=== PATIENT | female | born 1960 | race Caucasian/White ===

== ENCOUNTER 2021-04-29 09:35 | Outpatient (REF) | payer BC, SELFPAY ==
[2021-04-29 11:12] LABS: MANUAL DIFF FLAG NO
[2021-04-29 11:15] LABS: Basophils Absolute Auto 0.1 X10*3/uL (0.0-0.2); Basophils Percent Auto 0.9 % (0-2); Eosinophils Absolute Auto 0.2 X10*3/uL (0.0-0.4); Eosinophils Percent Auto 3.5 % (0-4); Hematocrit 40.4 % (37-47); Hemoglobin 13.4 g/dl (12.0-16.0); Imm Gran Abs Auto 0.01 X10*3/uL (0.00-0.03); Imm Gran Pct Auto 0.2 % (0.0-0.4); Lymphocytes Absolute Auto 1.5 X10*3/uL (1.2-4.9); Lymphocytes Percent Auto 27.8 % (20-40); Mean Corpuscular HGB Conc 33.2 g/dl (31.0-35.0); Mean Corpuscular Hemoglobin 28.7 pg (27.0-33.0); Mean Corpuscular Volume 86.5 fL (80-98); Mean Platelet Volume 10.4 fL (9.4-12.3); Monocytes Absolute Auto 0.7 X10*3/uL (0.1-1.2); Monocytes Percent Auto 12.1 % (2-11); Neutrophils Percent Auto 55.5 % (45-73); Platelet Count 222 X10*3/uL (160-400); Red Blood Count 4.67 X10*6/uL (4.20-5.50); Red Cell Distribution Width 12.5 % (11.0-16.0); White Blood Count 5.4 X10*3/uL (4.8-10.8)
[2021-04-29 11:35] LABS: Alanine Aminotransferase 17 U/L (0-31); Albumin Level 4.3 g/dL (3.5-5.0); Alkaline Phosphatase 54 U/L (39-117); Anion Gap 12 (12-20); Aspartate Amino Transferase 18 U/L (5-31); Bilirubin Total 0.4 mg/dL (0.0-1.0); Blood Urea Nitrogen 21 mg/dL (9-16); Calcium 9.5 mg/dL (8.4-10.2); Carbon Dioxide 28 mmol/L (22-29); Chloride 105 mmol/L (96-108); Cholesterol 229 mg/dL; Estimated Glomerular Filt Rate > 60; Glucose Fasting 100 mg/dL (60-99); HDL Cholesterol 65 mg/dL; LDL Cholesterol Calculated 143 mg/dl; Potassium 4.4 mmol/L (3.3-5.1); Sodium 141 mmol/L (135-145); Total Protein 7.5 g/dL (6.5-8.0); Triglycerides 107 mg/dL
== END 2021-04-29 09:36 | disposition home or self-care (01) ==
LOC: HO.MANLDS 09:35
PROVIDERS: PCP Internal Medicine; Visit Provider Physician Assistant
DX: Z00.00 Encounter for general adult medical examination without abnormal findings (principal); Z13.220 Encounter for screening for lipoid disorders
CPT/HCPCS: 36415; 80053; 80061; 85025

== ENCOUNTER 2023-04-02 17:05 | Outpatient (REF) | payer BC, SELFPAY ==
[2023-04-02 18:33] LABS: Magnesium 2.3 mg/dL (1.6-2.6)
[2023-04-02 18:52] LABS: Vitamin D 25-OH Total 58.5 ng/mL (>30)
[2023-04-05 11:48] LABS: Complement C3 130 mg/dL (83-193)
[2023-04-08 16:42] LABS: Vitamin D 25-OH, D2 <4 ng/mL; Vitamin D 25-OH, D3 48 ng/mL; Vitamin D 25-OH, Total 48 ng/mL (30-100)
[2023-04-08 20:05] LABS: VITAMIN D (1,25 OH) D3 40 pg/mL; Vit D (1,25-Dihydroxy) Total 40 pg/mL (18-72); Vitamin D (1,25 OH) D2 <8 pg/mL
[2023-04-09 06:09] LABS: Calcium (PTHI) 9.6 mg/dL (8.6-10.4); PTHI 37 pg/mL (16-77)
== END 2023-04-02 17:06 | disposition home or self-care (01) ==
LOC: HO.LAB 17:05
PROVIDERS: PCP Internal Medicine; Visit Provider Physician Assistant
DX: T14.8XXS Other injury of unspecified body region, sequela (principal); W57.XXXS Bitten or stung by nonvenomous insect and other nonvenomous arthropods, sequela; R76.8 Other specified abnormal immunological findings in serum; R20.9 Unspecified disturbances of skin sensation; E55.9 Vitamin D deficiency, unspecified
CPT/HCPCS: 82306; 82330; 82652; 83735; 83970; 86160; 86790

== ENCOUNTER 2025-01-16 12:17 | Outpatient (REF) | payer BC, SELFPAY ==
--- OUTSIDE RECORDS SUMMARY | 2025-01-16 12:55 | XMS_ITS | Encounter Summary ---
Author Organization [facility] Address [address] [place] [address] Care Team Providers Care [employer] Name Role Phone Tevin Munguia DO Primary Care Provider [phone] Michelle Talbot MD Unavailable Michelle Talbot MD Unavailable Encounter Details Date Type Department Care Team (Late st Contact Info) Description 07/23/2023 Scanned Document [facility] RHEUMATOLOGY SCAN Rheumatology, Scan Social History Tobacco Use Types Packs/Day Years Used Date Smoking Tobacco: Former Cigarettes Smokeless Tobacco: Never Alcohol Use Standard Drinks/Week Comments Yes 1 (1 standard drink = 0.6 oz pur e alcohol) Comments No Sex and Gender Information Value Date Recorded Sex Assigned at Female 04/27/2023 1:47 PM EDT Legal Sex Female 1:12 PM EDT Gender Identity Female 04/27/2023 1:47 PM EDT Sexual Orientation Heterosexual (straight) 04/27 1:47 PM EDT documented as of this encounter Plan of Treatment Not on file documented as of this encounter Visit Diagnoses Not on filedocumented in this encounter Care Teams [employer] Relationship Specialty Start Date End Date Tevin Munguia DO [address] [facility] [place] [address] [place] [address] PCP - General 06/21/23 Michelle Talbot MD [address] [id number] PCP - [employer] Attributed 08/17/23 12/16/23 Michelle Talbot MD [address] [place] [id number] PCP - [employer] Attributed 01/16/24 Brenda Javed [address] [place] [id number] Physician Inspector [employer] Internal Medicine 04/27/23 documented as of this encounter
--- OUTSIDE RECORDS SUMMARY | 2025-01-16 12:55 | XMS_ITS | Data Portability ---
Author Organization [facility] Address [address] [place] [address] Assessment Encounter Date Assessment Date Assessment LastModified by Organization Details LastModified Time 03/23/2023 03/23/2023 Patient agreed and verbally consents to this audio and video Telehealth appt via a secure platform [email or web address] Not available 03/23/2023 12:06:23 05/11/2023 05/11/2023 Patient agreed and verbally consents to this audio and video Telehealth appt via a secure platform [email or web address] Not available 05/11/2023 10:25:51 Plan of Treatment Reminders Order Date Submit Date Provider Last Modified By Organization Details Last Modified Time Details Appointments ANNUAL EXAM 2024 11:45A M GIRMA KENDALL Not available Not available Not available Lab CMP, serum or plasma 2024 025 [facility], [address] [place] [address], [id number], 01/16/2025 12:12:18 CBC w/ auto diff 2024 025 [facility], [address] [place] [address], [id number], 01/16/2025 12:12:18 lipid panel, blood 2024 025 [facility], [address] [place] [address], [id number], 01/16/2025 12:12:18 C-reactiv e protein, quantitat kary, serum or plasma 2024 025 [facility], [address] [place] [address], [id number], 01/16/2025 12:25:45 ESR (erythroc yte sedimenta tion rate), blood 2024 025 [facility], [address] [place] [address], [address], 01/16/2025 12:25:45 sjogren antibody panel (ssa, ssb, ro, la), serum 2024 025 [facility], [address] [place] [address], [id number], 01/16/2025 12:25:45 C3 + C4 (compleme nt), serum 2022 023 [facility], [address] [place] [address], [address], 04/06/2023 11:52:28 chikungun ya virus Ab IgM + IgG panel, serum 2022 023 [facility], [address] [place] [address], [id number], 04/12/2023 13:19:21 malaria, igg Ab, serum 2022 023 [facility], [address] [place] [address], [address], 04/10/2023 11:30:43 vitamin D, 25-hydrox y, total, serum 2022 023 [facility], [address] [place] [address], [address], 04/02/2023 16:05:27 PTH (parathyr oid hormone), intact, serum or plasma 2022 023 [facility], [address] [place] [address], [address], 04/02/2023 16:05:26 magnesium , serum or plasma 2022 023 [facility], [address] [place] [address], [address], 04/02/2023 16:05:26 calcium, ionized, blood 2022 023 [facility], [address] [place] [address], [address], 04/02/2023 16:05:26 vitamin D, 1,25-dihy droxy, serum 2022 023 [facility], [address] [place] [address], [address], 04/03/2023 11:56:43 vitamin D3, 25-hydrox y, serum 2022 023 [facility], [address] [place] [address], [address], 04/02/2023 16:05:27 Referral None recorded. Procedures None recorded. Surgeries None recorded. Imaging bone density 2022 023 [facility], [address], [place], [address], 04/16/2023 09:44:05 US, kidney - autoimmun e disorder; concern for effect on kidneys 2022 023 [facility], [address], [address], [place], [address], 04/13/2023 06:58:48 Medication Orders lisinopri l 10 mg tablet 2024 025 [facility], [facility], GIRMA Kerr, [address], 01/16/2025 12:11:25 fluconazo le 200 mg tablet 2024 025 [facility]135, [address], [place], [place], [id number], 01/16/2025 12:03:16 phentermi ne 15 mg capsule 2022 023 [facility]04918, [address], [place], [place], [id number], 01/16/2025 11:49:04 prednison e 10 mg tablet 2022 023 [facility]86674, [address], [place], [id number], 04/02/2023 15:30:49 EstroGel 1.25 gram/actu ation (0.06%) transderm al gel pump 2022 023 [facility], [address] [place] [address], [address], 01/16/2025 11:49:22 Contrave 8 mg-90 mg tablet,ex tended release 2022 023 [facility], [address] [place] [address], [address], 10/04/2022 10:20:45 Zithromax Z-Jaxon 250 mg tablet 2022 023 [facility] #61634, [address], [place], [place], [id number], 10/04/2022 10:19:02 Patient TargetsNo targets recorded. Patient InstructionsNo instructions recorded. Reason for Referral None Reported. Results Created Date Observation Date Name Description Value Unit Range Abnormal Flag Note LastModifiedBy Organization Detail LastModifiedTime 04/13/20 23 04/13/2023 XR, cervi cher spine , 2 or 3 view No observ ation record ed. [address], [place], [address], 04/16/2023 08:38:48 05/16/2005/14/2023 bone densi ty No observ ation record ed. [facility] [address] [place], [address], 01/16/2025 12:12:30 10/05/19 24 10/05/2023 MAMMO , scree leah, digit al, bilat eral No observ ation record ed. [facility] [address] [place], [address], 01/16/2025 12:12:30 10/09/19 25 10/09/2024 MAMMO , scree leah, digit al, bilat eral No observ ation record ed. [facility] [address] [facility] [address], [place], [address], 01/16/2025 12:12:30 Result Notes None recorded. 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 frequent uti, vaginal dryness December RIKKI Winters [address] [place], [address], [facility] 9 15:08:10 Overweig ht 082308244 Active 2022 GIRMA KENDALL [address] [place], [address], [facility] 3 15:57:39 Acute otitis media 5467609 Active 2022 GIRMA KENDALL [address] [place] [address], [address], [facility] 3 16:10:14 Reduced libido 5367497 Active 2022 GIRMA KENDALL [address] [place] [address], [address], [facility] 3 16:16:22 Atrophic vaginiti s 36353785 Active 2022 GIRMA KENDALL [address] [place] [address], [address], [facility] 3 16:17:06 Rheumato id arthriti s 39191109 Active 2022 GIRMA KENDALL [address] [place] [address], [address], [facility] 3 09:39:54 Pain of multiple joints 12384791 Active 2022 GIRMA KENDALL [address] [place] [address], [address], [facility] 3 10:51:25 Myalgia/ myositis - multiple 557431901 Active 2022 GIRMA KENDALL [address] [place] [address], [address], [facility] 3 11:57:12 Mosquito bite 409613029 Active 2022 GIRMA KENDALL [address] [place] [address], [address], [facility] 3 15:52:19 Renal pain 969846265 Active 2022 GIRMA KENDALL [address] [place] [address], [address], [facility] 3 15:59:29 Autoimmu ne disease 30067876 Active 2022 GIRMA KENDALL [address] [place] [address] [place], [address], [facility] 3 15:59:39 Rheumato id factor detected 056684374 Active 2022 GIRMA KENDALL [address] [place] [address], [address], [facility] 3 15:59:48 Anti-nuc lear factor detected 853335136 Active 2022 GIRMA KENDALL [address] [place] [address], [address], [facility] 3 15:59:54 Hypopara thyroidi sm 67524058 Active 2022 GIRMA KENDALL [address] [place] [address], [address], [facility] 3 16:00:39 Neck pain 05129291 Active 2022 Tevin Munguia DO [address] [place] [address], [address], [facility] 3 12:51:12 Dysuria 04896226 Active 2023 GIRMA KENDALL [address] [place] [address], [address], [facility] 4 09:54:44 Onychomy cosis of toenails 137398402 Active 2024 GIRMA KENDALL [address] [place] [address], [address], [facility] 5 12:01:53 Sj? ? ?gren's syndrome 98329471 Active 2024 GIRMA KENDALL [address] [place] [address], [address], [facility] 5 12:04:18 Problem Notes None recorded. Procedures Surgical History Date Name Laterality Status Provider Name and Address Organization Details Recorded Time 10/15/19 Carpal tunnel surgery completed GIRMA KENDALL [address] [place] [address], [address], [facility] 04/02/2023 15:44:19 12/07/19 19 arthroscopy of knee completed Caridad Peralta NP, S [address] [place] [address], [address], [facility] 12/23/2018 14:51:27 05/04/20 17 Most Recent Mammogram completed Keerthi Torres [facility] 04/02/2019 10:41:20 Caesarean Section completed Caridad Peralta NP, S [address] [place] [address], [address], [facility] 11/27/2018 13:07:08 ligation of bilateral fallopian tubes completed Caridad Peralta NP, S [address] [place] [address], [address], [facility] 11/27/2018 13:07:35 colonoscopy completed Caridad Almanza i, NP, S [address] [place] [address], [address], [facility] 11/27/2018 13:07:48 Imaging Results Imaging Date Name Status LastModified by Organiz ation Details LastModified Time 04/13/2023 XR, cervical spine, 2 or 3 view completed [email or web address] [place], [address], 04/16/2023 08:38:48 05/14/2023 bone density completed [facility] [address] [place] [address], [address], 01/16/2025 12:12:30 10/05/2023 MAMMO, screening, digital, bilateral completed [facility] [address] [place] [address], [address], 01/16/2025 12:12:30 10/09/2024 MAMMO, screening, digital, bilateral completed [facility] [address] [place] [address] [address], [place], [address], 01/16/2025 12:12:30 Procedure Notes None recorded. Medical Equipment None Reported. Allergies Allergen ID Allergen Name Allergen Category Reaction Reaction Severity Criticality Documentation Date Start Date Code Code System Note Provider Name and Address Organization Details Recorded Time 1599 Bactrim medicatio n Not available Not available Not available 02/26/2018 48243 9 RxNorm Ann Chaparrita guaman, [facility] 8 11:36:01 7190 Contrave medicatio n Not available Not available Not available 05/11/2023 78042 69 RxNorm GIRMA KENDALL [address] [place], [address], [facility] 3 10:26:40 Medications Name Sig Start Date Stop Date Status Note LastModified by Organization Details LastModified Time prednison e 10 mg tablet TAKE 6 TABLETS BY MOUTH DAILY FOR 3 DAYS THEN DECREASE BY 1 TABLET EVERY 3 DAYS UNTIL FINISHED 04/02 completed Not Available Not Available Not Available clindamyc in HCl 300 mg capsule TAKE 1 CAPSULE BY MOUTH 4 TIMES PER DAY FOR 7 DAYS 04/29 completed Not Available Not Available Not Available fluconazo le 200 mg tablet Take 1 tablet every day by oral route as directed for 30 days. 2024 active Not Available Not Available Not Avai lable meloxicam 15 mg tablet 06/01 completed Not Available Not Available Not Available ondansetr on HCl 4 mg tablet TAKE 1 TABLET BY MOUTH EVERY 8 HOURS FOR 6 DAYS NEEDED FOR NAUSEA 01/16 completed Not Available Not Available Not Available prednison e 20 mg tablet TAKE 1 TABLET BY MOUTH TWICE DAILY FOR 7 DAYS 05/11 completed Not Available Not Available Not Available Zithromax Z-Jaxon 250 mg tablet TAKE 2 TABLETS (500 MG) BY ORAL ROUTE ONCE DAILY FOR 1 DAY THEN 1 TABLET (250 MG) BY ORAL ROUTE ONCE DAILY FOR 4 DAYS 10/04 completed Not Available Not Available Not Available phentermi ne 15 mg capsule TAKE 1 CAPSULE BY MOUTH EVERY DAY 01/16 completed Not Available Not Available Not Available peg-elect rolyte solution 420 gram oral solution 06/01 completed Not Available Not Available Not Available meloxicam 7.5 mg tablet 04/04 completed Not Available Not Available Not Available lisinopri l 10 mg tablet TAKE 1 TABLET DAILY 2024 active Not Available Not Available Not Avai lable diclofena c potassium 50 mg tablet TAKE 1 TABLET BY MOUTH TWICE DAILY NEEDED 03/23 completed Not Available Not Available Not Available estradiol 0.01% (0.1 mg/gram) vaginal cream Insert 1 g 3 times a week by vaginal route as needed for 90 days. 01/16 completed Not Available Not Available Not Available naproxen 500 mg tablet 04/29 completed Not Available Not Available Not Available oxycodone 5 mg tablet TAKE 1 TABLET BY MOUTH EVERY 6 HOURS NEEDED FOR PAIN 01/16 completed Not Available Not Available Not Available Bactrim DS 800 mg-160 mg tablet Take 1 tablet every 12 hours by oral route for 7 days. 04/04 completed Not Available Not Available Not Available bupropion HCl XL 300 mg 24 hr tablet, extended release TAKE 1 TABLET DAILY IN THE MORNING active Not Available Not Available No t Available EstroGel 1.25 gram/actu ation (0.06%) transderm al gel pump APPLY 1 PUMP TOPICALL Y DAILY NEEDED 01/16 completed Not Available Not Available Not Available Contrave 8 mg-90 mg tablet,ex tended release Take 1 tablet every day by oral route for 7 days. 10/04 completed stomach upset Not Available Not Available Not Available Yuvafem [address] TABLET (10 MCG TOTAL) VAGINALL Y 3 TIMES A WEEK. 01/16 completed Not Available Not Available Not Available Flucelvax Quad 60 mcg (15 mcg x 4)/0.5 mL intramusc ular susp 04/29 completed Not Available Not Available Not Available Flowflex COVID-19 Antigen Home Test kit 09/27 completed Not Available Not Available Not Available Vitals Date Recorded Body height Body mass index (BMI) Body weight Oxygen saturation Oxygen saturation in Arterial blood by Pulse oximetry Heart rate Systolic blood pressure Diastolic blood pressure Provider Name and Address Organization Details Last Updated DateTime 3 159.39 cm 29.4 kg/m2 22985.3 g 98 % 98 % 80 /min 112 mm[Hg] 70 mm[Hg] [facility] 3 15:29:13 Date Recorded Body height Body mass index (BMI) Body weight Oxygen saturation Oxygen saturation in Arterial blood by Pulse oximetry Heart rate Systolic blood pressure Diastolic blood pressure Provider Name and Address Organization Details Last Updated DateTime 3 159.39 cm 21.1 kg/m2 58965.6 2 g 99 % 99 % 75 /min 134 mm[Hg] 72 mm[Hg] GIRMA KENDALL [address] [place], [address] , [facility] 3 15:28:46 Date Recorded Body height Body mass index (BMI) Body weight Heart rate Oxygen saturation Oxygen saturation in Arterial blood by Pulse oximetry Systolic blood pressure Diastolic blood pressure Provider Name and Address Organization Details Last Updated DateTime 5 159.39 cm 27.7 kg/m2 12679.9 g 67 /min 99 % 99 % 110 mm[Hg] 74 mm[Hg] Ariane Falk [facility] 5 11:51:20 Social History Question Answer Notes LastModified by Organizat ion Details LastModified Time Tobacco Smoking Status Former Smoker Not Available [facility] 07/20/2020 03:36:23 What Was The Date Of Your Most Recent Tobacco Screening? 01/16/2025 [email or web address] Information not available 01/16/2025 Sex: Unknown Functional Status None recorded. Mental Status None recorded. Family History Relationship Description Onset Age of this Age Resolved Age Notes LastModified by Organization Details LastModified Time Father Coronary arterioscler osis [email or web address] Not available 2018 13:06:46 Mother Malignant neoplasm of lung [email or web address] Not available 15:18:26 Medical History No medical history recorded. Gynecological History Statement/Question Response Most Recent Mammogram 05/04/2017 Obstetrics History GPAL:G 0 P 0 0 0 0 Immunizations Vaccine Type Date Status Note Provider Nam e and Address Organization Details Recorded Time COVID-19, mRNA, LNP-S, PF, 30 mcg/0.3 mL dose 1 completed Soledad guaman [facility] 04/29/2021 09:08:58 COVID-19, mRNA, LNP-S, PF, 30 mcg/0.3 mL dose 1 [facility] [place] 04/29/2021 09:09:04 Tdap 8 completed Not Available [facility] 10/18/2019 02:14:52 influenza, unspecified formulation 1 [facility] 08:40:41 zoster recombinant 1 completed GIRMA KENDALL [address] [place] [address], [address], [facility] 04/02/2023 16:06:14 zoster recombinant 0 completed GIRMA KENDALL [address] [place] [address], [address], [facility] 04/02/2023 16:06:36 Past Encounters Encounter ID Performer Location Encounter Start Date Encounter Closed Date Diagnosis/Indication Diagnosis SNOMED-CT Code Diagnosis ICD10 Code Diagnosis Note [id number] Tevin Munguia [facility] [address] [place] [address],[place] [address] 03/11/2018 11:45:00 03/11/2018 13:58:30 Dysuria 81531811 R30.0 cultures negative [id number] Tevin Munguia [facility] [address] [place] [address], [place] [address] 04/04/2019 14:56:59 04/04/2019 15:53:22 Adult health examination 563204803 Z00.00 Active or passive immunization 010533760 Z23 Essential hypertension 18809264 I10 well controlled History of depression 16 8746877 Z86.59 Body mass index 25-29 - overweight 140223606 Z68.29 Laboratory test result abnormal 434509506 R89.9 Screening for malignant neoplasm of colon 391438537 Z12.11 [id number] Tevin Munguia [facility] [address] [facility],[place] [address] 06/01/2020 16:00:52 06/01/2020 16:36:38 Essential hypertension 49090608 I10 BP is excellent no side effects Cervical radiculopathy 83106479 M54.12 will get XRs of her neck and thoracic spine Thoracic back pain 51321 8004 M54.6 will see if it's related to DJD [id number] Tevin Munguia DO [facility] [address] [facility] [place] [address] 04/29/2021 09:02:17 04/29/2021 09:39:32 Active or passive immunization 113531272 Z23 advisedsub mitted Adult [facility] th examination 162702025 Z00.00 BP 124/60 today which is excellent Screening for osteoporosis 672959406 Z13.820 will set up for dexa scan [id number] Tevin Munguia DO [facility] Medicine [address] [facility] [place], [place] [address] 09/27/2022 15:21:25 09/28/2022 08:30:23 Active or passive immunization 104177554 Z23 advisedsub mitted Adult [facility] examination 167552681 Z00.00 BP 112/70 L arm sitting today which is excellent lab-work is excellent Overweight 171573588 E66 .3 will start on contrave Acute otitis media 48967 03 H65.01 will start on z-jaxon Atrophic vaginitis 07729 000 N95.2 will trial estrogel instead of the yuvafem and see if it works better [id number] Tevin Munguia DO [facility] [address] [facility] [place] [address] 03/23/2023 10:19:40 03/23/2023 15:42:33 Myalgia/myositis - multiple 877074724 M60.89 possible lupus?pradeep positive and anti-nativ [facility] [place] [id number] Tevin Munguia DO [facility] Medicine [address] [facility] [place], [place] [address] 04/02/2023 15:17:38 04/02/2023 16:47:28 Mosquito bite 966256532 T14.8XXS will also check a malaria panel Renal pain 088119718 N23 will also set up with US? lupus or effect on kidneys Autoimmune disease 60091 009 M35.3 more work up to figure out what her diagnosis Rheumatoid factor detected 457880776 R76.0 RA vs PSS vs polymyalgi a rheumatica Anti-nucle ar factor detected 358144663 R76.8 agreed to additional lab-work Hypoparathyroidism 99774 004 E20.9 will fu with full panel work up for her parathyroi d condition Screening for osteoporosis 233548834 Z13.820 will set up for dexa scan [id number] Tevin David Munguia [facility] [address] [facility],[place] [address] 05/11/2023 09:02:52 05/14/2023 15:01:14 Autoimmune disease 80988543 M35.3 more work up to figure out what her diagnosis Essential hypertension 57459381 I10 BP is excellent no side effects Hypoparathyroidism 58139 004 E20.8 will fu with full panel work up for her parathyroi d condition Mosquito bite 744887492 T14.8XXS will also check a malaria panel Rheumatoid arthritis 698 49638 M06.9 waiting on rheum referral Overweight 473465737 E66 .3 will trial phentermin e [id number] [facility] [address] [facility],[place] [address] 01/16/2025 11:40:31 01/16/2025 12:13:52 Active or passive immunization 564416558 Z23 advisedsub mitted General ex amination of patient 862427063 Z00.00 BP 110/74 L arm sitting today which is excellent lab-work is excellent Onychomyco sis of toenails 881759792 B35.1 will set up with anti fungal Sj? ? ?gren's syndrome 82932128 M35.09 needs levels rechecked Essential hypertension 13431715 I10 BP is excellent no side effects Health Concerns Section Related Observation LastModified by Organization Detai ls LastModified Time None Recorded Concern Status LastModified by Organization Details LastModified Time None Recorded Advance Directives Directive None Recorded Payers Encounter Date Sequence Insurance Name Policy Number Policy Daniel Covered Member ID Daniel Member ID Guarantor Name 09/27/2022 1 [place] [id number] Antoinette M Pirog [id number] Antoinette Pirog 03/23/2023 1 [place] [id number] Antoinette M Pirog [id number] Antoinette Pirog 04/02/2023 1 [place] [id number] Antoinette M Pirog [id number] Antoinette Pirog 05/11/2023 1 [place] [id number] Antoinette Rayo Pirog [id number] Antoinette Pirog 01/16/2025 1 [place] [id number] Antoinette Rayo Pirog [id number] Atnoinette Pirog Notes Date Note Type Note Provider Name and Address Organization Details Recorded Time 3 text/html Annual WellnessReported bypatient.Diet and Nutrition:high caloric intake; discussed vitamin and supplement use; discussed portion control; discussed maintaining calcium balance; discussed diet improvement; discussed diet and intervention with diet Fracture Risk:no history of fractures; no recent explained fracture; no sudden unexplained fractures; no previous musculoskeletal injuries Physical Activity:exercises on a regular basis; good physical condition;decreased physical activity; discussed weightbearing activities; discussed exercise habits Additional Lifestyle Factors:no tobacco use; drinks alcohol (mild-moderate) Depression Risk:never feels sad, empty, or tearful; no loss of interest in activities; no significant changes in weight; no sleep disturbances or insomnia; no agitation; no loss of energy; no feelings of worthlessness or guilt; no thoughts of suicide; no history of depression; no history of mood disorders Hearing:no loss of hearing Vision:no vision problems the patient has a lot of stress due to home life and job lifethe patient reports she is paying a lot for the her kids and her job is very stressful GIRMA KENDALL [address] [place] [address], [place], [address], [facility] 09/27/2022 16:20:02 3 text/html f/u lab work tele-med phone callpatient consents to phone call start on prednisonepossible lupus based on labsneeds an in person evaluation to confirm or deny diagnosisin Rubi right nowhaving DB or AG move her appt up sooner GIRMA KENDALL [address] [place], [address], [facility] 03/23/2023 12:12:06 3 text/html f/u lab-work the patient is here today for fu of her multiple joint painstarted on pred since she was on vacation the patient has been having hip pain right side starting beginning of the year; found to have right bursitis > started with PT through orthothe patient reports she started getting better in January the patient is also stressed due to her daughter going through divorcecurrently living with her with her grandkids the patient then started with the most recent complication with severe joint pain with most of her joints; and head pain with cervical neck radiation the patient reports that she originally saw UC, tick panel was negativedid also see telemed doc through her insurance; given diclofenac which was ineffective then she talked to mestarted on pred which has helped reduce the majority of her swelling in her UE's and neck painstill has +3 pitting edema in her left foot and +2 pitting edema in her right foot the pt had bone density done but we never got the results backhas them on her portal the patient has a positive RF, PRADEEP, anti-dsdna, anti nuclear, low PTHagreed to more work up also need to check her kidneys GIRMA KENDALL [address] [place], [address], [facility] 04/02/2023 16:14:53 3 text/html f/u symptom check tele-med phone callpatient consents to phone the patient reports that she still has some swelling in her left legsthe patient reports that she finished the prednisone; the patient still has tingling in her toes, all toesstill has a headache and back of her neckhas been having them since the start of this has rheum appointment in June of the dull achy constant nowwas sharp originally will f/u with here afterwards GIRMA KENDALL [address] [place], [address], [facility] 05/11/2023 10:29:19 5 text/html Annual WellnessReported bypatient.Diet and Nutrition:healthy diet; discussed vitamin and supplement use; discussed portion control; discussed maintaining calcium balance; discussed diet improvement Fracture Risk:no history of fractures; no recent explained fracture; no sudden unexplained fractures; no previous musculoskeletal injuries Physical Activity:exercises on a regular basis; recent increase in physical activity; good physical condition; discussed weightbearing activities; discussed exercise habits Additional Lifestyle Factors:no tobacco use; drinks alcohol (mild-moderate) Depression Risk:never feels sad, empty, or tearful; no loss of interest in activities; no significant changes in weight; no sleep disturbances or insomnia; no agitation; no loss of energy; no feelings of worthlessness or guilt; no thoughts of suicide; no history of depression; no history of mood disorders Hearing:no loss of hearing Vision:no vision problems GIRMA KENDALL [address] [place] [address], [phone], [facility] 01/16/2025 12:13:51 OBGyn Episode No OBEpisode recorded.
--- OUTSIDE RECORDS SUMMARY | 2025-01-16 12:55 | XMS_ITS | Clinical Summary ---
Author Organization [facility] Address [address] [place] [address] Care Team Providers Care Senior Energy Market Coordinator Name Role Phone Tevin Munguia DO Primary Care Provider [phone] Michelle Talbot MD Unavailable Allergies Active Allergy Reactions Criticality Noted Date Comments Sulfa Antibiotics Itching Low 06/21/2023 Medications buPROPion (WELLBUTRIN XL) 300 MG 24 hr tablet 3 Active Calcium-Vitamin D-Vitamin K 500-1000-40 MG-UNT-MCG Chew Tab Orally Active estradiol (ESTRACE) 0.01 % vaginal cream Insert 1 g 3 times a week by vaginal route as needed for 90 days. Active Estradiol (Estrogel) 0.75 MG/1.25 GM (0.06%) topical gel APPLY 1 PUMP TOPICALLY DAILY NEEDED 3 Active lisinopril (PRINIVIL,ZeSTR IL) 10 MG tablet 3 Active naproxen (NAPROSYN) 500 MG tablet naproxen 500 mg tablet Active hydroxychloroqu ine (PLAQUENIL) 200 MG tabletIndicatio ns:Sjogren syndrome with keratoconjuncti vitis,Positive double stranded DNA antibody test Take 1.5 tablets (300 mg total) by mouth every morning with breakfast. With food or milk. 45 tablet 3 3 Active phentermine 15 MG capsule Take 1 tablet by mouth daily. Active Active Problems Problem Noted Date Diagnosed Date Positive double stranded DNA antibody test 12/09 Rheumatoid factor positive 12/10/2023 Arthralgia 12/10/2023 Sjogren syndrome with keratoconjunctivitis 08/06 Encounters Date Type Department Care Team Description 11/07/2024 8:00 AM EST Treatment [facility] [place] [address] Lanie Thomas MD Goncalves, Ashley, PT Dyspareunia in female (Primary Dx); Stress incontinence in female; Nocturia; Pelvic floor dysfunction 11/07/2024 Travel from Last 3 Months Family History Medical History Relation Name Comments Hypertension Daughter Peripheral vascular disease Father Cancer Mother Hypertension Sister Relation Name Status Comments Daughter Father Mother Sister Social History Tobacco Use Types Packs/Day Years Used Date Smoking Tobacco: Former Cigarettes Smokeless Tobacco: Never Tobacco Cessation:Counseling Given: Not Answered Alcohol Use Standard Drinks/Week Comments Yes 1 (1 standard drink = 0.6 oz pur e alcohol) [facility] - Occupational Stress Questionnaire Answer Date Recorded Do you feel stress - tense, restless, nervous, or anxious, or unable to sleep at night because your mind is troubled all the time - these days? To some extent 03/11/2024 Physical Activity Answer Date Recorded On average, how many days pe r week do you engage in moderate to strenuous exercise (like a brisk walk)? 3 days 03/11/2024 On average, how many minutes do you exercise per day at this level? 50 min 03/11/2024 Comments No Sex and Gender Information Value Date Recorded Sex Assigned at Female 04/27/2023 1:47 PM EDT Legal Sex Female 1:12 PM EDT Gender Identity Female 04/27/2023 1:47 PM EDT Sexual Orientation Heterosexual (straight) 04/27 1:47 PM EDT Last Filed Vital Signs Vital Sign Reading Time Taken Comments Blood Pressure 102/66 03/11/2024 3:21 PM EDT Pulse 91 03/11/2024 3:21 PM EDT Temperature 36.3 ??C (97.4 ??F) 12/10/2023 1:36 PM ED T Respiratory Rate - - Oxygen Saturation 97% 12/10/2023 1:36 PM EDT Inhaled Oxygen Concentration - - Weight 66.7 kg (147 lb) 03/11/2024 3:21 PM EDT Height 153.2 cm (5' 0.3 ) 03/11/2024 3:21 PM EDT Body Mass Index 28.42 03/11/2024 3:21 PM EDT Plan of Treatment Health Maintenance Due Date Last Done Comments Hepatitis C Virus Screening 1959 HIV Screening 1972 DTaP/Tdap/Td Vaccines (1 - Tdap) 1978 Pneumococcal Vaccines 50+ (1 of 2 - PCV) 1978 Zoster (Shingles) Vaccine (1 of 2) 1978 Pap Smear (Ages 21-65) 1980 Mammogram 1999 Colonoscopy 2004 RSV Vaccine 60 years and older and Patients (1 - Risk 60-74 years 1-dose series) 2019 DXA Bone Density (Females,Ages 65 and older) 2024 COVID-19 Vaccine (2023- season) 2024 07/04/2022, 03/10/2022, 08/29/2021, Additional history exists Influenza Vaccine 04/17/2025 09/22/2024, , 07/13/2021, Additional history exists Hepatitis B Vaccines Aged Out No long er eligible based on patient's age to complete this topic Goals Goal Patient Goal Type Associated Problems Recent Progress Patient-Stated? Author PT LTG - Dyspanenuria Physical Therapy No Jesi Edouard, PT Note: Patient will be indep in use pf strategies for pelvic floor relaxation (breathing, dilators) to allow for improved tolerance to sexual activity. 10/03/2024 still addressing breathing aspect for pain management Pt will be able to have sexual intercourse and gisell pelvic exam without c/o >210/03/2024 still addressing Patient will be able to coughing, and sneezing without leaking 90% of the time to improve QOL. 10/03/2024 complete Patient will report voiding <1 times per night to ensure ability to obtain a full night of sleep. 10/03/2024 complete Pt will demo ability volitionally relax pelvic floor muscles ind to 100% range to A with decreasing current symptoms. 10/03/2024 still addressing. Length of LTwks PT STG - Dypspenauria Physical Therapy No Jesi Edouard, PT Note: Patient will be I with HEP as instructed by therapist to continue progress toward 10/03/2024 complete Patient will be able to coordinate inhale for pelvic floor muscle relaxation and exhale for pelvic floor muscle squeeze. 10/03/2024 can do but needs v/c from PT Length of STwk Insurance BLUE CROSS OUT OF [facility] BLUE CROSS OUT OF [facility] OUT [facility] - PPO Care Teams Senior Energy Market Coordinator Relationship Specialty Start Date End Date Tevin Munguia DO [address] [place] [address] PCP - General 06/21/23 Michelle Talbot MD [address] [place] [id number] PCP - [employer] Attributed 01/16/24 Brenda Javed [address] [place] [address] Physician [employer] [facility] 04/27/23
--- OUTSIDE RECORDS SUMMARY | 2025-01-16 12:55 | XMS_ITS | Clinical Summary ---
Author Organization [facility] Address [address] [place] [address] Care Team Providers Care Tank Truck Milk Receiver Name Role Phone No, Pcp INGREDIENT SCALER HELPER Primary Care Provider Unavailabl e Social History Tobacco Use Types Packs/Day Years Used Date Smoking Tobacco: Never Assessed Comments Unknown Sex and Gender Information Value Date Recorded Sex Assigned at Not on file Legal Sex Female 8:59 AM EDT Gender Identity Not on file Sexual Orientation Not on file Plan of Treatment Health Maintenance Due Date Last Done Comments Colorectal Cancer: COLONOSCO PY Screening every 10 yrs (or Modifier) 1959 Depression: Screening Annual ly using PHQ-2/9 in Adults 18 yrs or above (or HM Modifier)([facility]) 1977 Hepatitis C Virus Infection in Adolescents and Adults: Screening (or Modifier) ([facility]) 1977 SDUT Screening Reminder: Carin callejas for all adults ([facility]) 1977 Tobacco Smoking Cessation: i n Adults excluding Women: Behavioral and Pharmacotherapy Interventions ([facility]) 1977 Cervical Cancer Screenin 1-65 yrs of age (or Modifier) 1980 Cervical Cancer Screening: P ap every 3 yrs pts age 21-65 1980 Cervical Cancer: Pap Screeni ng with Modifier timing ([facility]) 1980 Cervical Cancer: hrHPV alone or with cotesting Pap for Pts 30-65yrs screening every 5yrs ([facility]) 1980 Colorectal Cancer Screening 45 -75 Yrs (or HM Modifier) 2004 Colorectal Cancer: FLEXIBLE SIGMOIDOSCOPY Screening every 5 yrs 2004 Colorectal Cancer: Fecal Imm unochemical Test (FIT) Annually [facility] 2004 Colorectal Cancer: High-sens itivity gFOBT Screening Annually [facility] 2004 Colorectal Cancer: Stool Col oguard Screening every 3 yrs 2004 Colorectal Cancer:CT Colonog alan Screening every 5 yrs 2004 Lipid Screening: Every 5 yrs for Women aged 45+ (or HM Modifier) ([facility]) 2005 Breast Cancer: Screening Carin ually age 50-74 yrs (or HM Modifier)([facility]) 2009 Pneumococcal Vaccination Scr eening: Patients 50+ yrs of age ([facility]) (1 of 1 - PCV) 2009 Zoster/Shingles Vaccine Seri es Screening: Adults aged 18+ yrs (or HM Modifiers)([facility]) (1 of 2) 2009 Osteoporosis Screening to Pr event Fractures: Women aged 65 years+ ([facility]) 2024 05/06/2021 COVID-19 Vaccine Screening: Initial Series and Booster Status ([facility]) ( season) 2024 01/06/2021, 12/09/2020 Flu Vaccination: Ages 65+: Y early High Dose Recommended (or Modifier)([facility]) 04/17/2025 DTaP/Tdap/Td Vaccines ([facility]) (2 - Td or Tdap) 06/16/2028 06/16/2018 RSV Vaccines (1 - 1-dose 75+ series) 2034 [employer] Devices Not on file Insurance [facility] Care Teams Tank Truck Milk Receiver Relationship Specialty Start Date End Date No, Pcp, INGREDIENT SCALER HELPER N/A Do not use PCP - General Family Medicine 06/20/20
--- OUTSIDE RECORDS SUMMARY | 2025-01-16 12:55 | XMS_ITS | Continuity of Care Document ---
Author Organization [facility], [facility] Address [address] [place] [address] Assessment No assessment recorded. Plan of Treatment Reminders Order Date Submit Date Provider Last Modified By Organization Details Last Modified Time Details Appointments ANNUAL EXAM 2024 11:45A M GIRMA KENDALL Not available Not available Not available Lab CMP, serum or plasma 2024 025 [facility], [address] [place] [address], [id number], 01/16/2025 12:12:18 CBC w/ auto diff 2024 025 [facility], [address] [place] [address], [address], 01/16/2025 12:12:18 lipid panel, blood 2024 025 [facility], [address] [place] [address], [address], 01/16/2025 12:12:18 C-reactiv e protein, quantitat kary, serum or plasma 2024 025 [facility], [address] [place] [address], [address], 01/16/2025 12:25:45 ESR (erythroc yte sedimenta tion rate), blood 2024 025 [facility], [address] [place] [address], [address], 01/16/2025 12:25:45 sjogren antibody panel (ssa, ssb, ro, la), serum 2024 025 [facility], [address] [place] [address], [place], [address], 01/16/2025 12:25:45 Referral None recorded. Procedures None recorded. Surgeries None recorded. Imaging None recorded. Medication Orders lisinopri l 10 mg tablet [address] [facility], GIRMA Kerr, [address], 01/16/2025 12:11:25 fluconazo le 200 mg tablet 2024 [id number], [address], [place], [place], [id number], 01/16/2025 12:03:16 Patient TargetsNo targets recorded. Patient InstructionsNo instructions recorded. Reason for Referral None Reported. 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 9 15:08:10 Overweig ht 625391439 Active 2022 GIRMA KENDALL [address] [place], [address], [facility] 3 15:57:39 Acute otitis media 7070874 Active 2022 GIRMA KENDALL [address] [place], [address], [facility] 3 16:10:14 Reduced libido 7802455 Active 2022 GIRMA KENDALL [address] [place], [address], [facility] 3 16:16:22 Atrophic vaginiti s 18660967 Active 2022 GIRMA KENDALL [address] [place], [address], [facility] 3 16:17:06 Rheumato id arthriti s 50432319 Active 2022 GIRMA KENDALL [address] [place], [address], [facility] 3 09:39:54 Pain of multiple joints 99442343 Active 2022 GIRMA KENDALL [address] [place], [address], [facility] 3 10:51:25 Myalgia/ myositis - multiple 944662265 Active 2022 GIRMA KENDALL [address] [place], [address], [facility] 3 11:57:12 Mosquito bite 577301376 Active 2022 GIRMA KENDALL [address] [place], [address], [facility] 3 15:52:19 Renal pain 042866494 Active 2022 GIRMA KENDALL [address] [place], [address], [facility] 3 15:59:29 Autoimmu ne disease 18031277 Active 2022 GIRMA KENDALL [address] [place] [address], [address], [facility] 3 15:59:39 Rheumato id factor detected 612369644 Active 2022 GIRMA KENDALL [address] [place] [address], [address], [facility] 3 15:59:48 Anti-nuc lear factor detected 751643402 Active 2022 GIRMA KENDALL [address] [place] [address], [address], [facility] 3 15:59:54 Hypopara thyroidi sm 54677737 Active 2022 GIRMA KENDALL [address] [place] [address], [address], [facility] 3 16:00:39 Neck pain 41973638 Active 2022 Tevin Munguia, DO [address] [place] [address], [address], [facility] 3 12:51:12 Dysuria 18997298 Active 2023 GIRMA KENDALL [address] [place] [address], [address], [facility] 4 09:54:44 Onychomy cosis of toenails 544490833 Active 2024 GIRMA KENDALL [address] [place] [address], [address], [facility] 5 12:01:53 Sj? ? ?gren's syndrome 60908151 Active 2024 GIRMA KENDALL [address] [place] [address], [address], [facility] 5 12:04:18 Problem Notes None recorded. Procedures Surgical History Date Name Laterality Status Provider Name and Address Organization Details Recorded Time 10/15/19 22 Carpal tunnel surgery completed GIRMA KENDALL [address] [place] [address], [address], [facility] 04/02/2023 15:44:19 12/07/19 19 arthroscopy of knee completed Caridad Peralta NP, S [address] [place] [address], [address], [facility] 12/23/2018 14:51:27 05/04/20 17 Most Recent Mammogram completed Keerthi Torres [facility] 04/02/2019 10:41:20 Caesarean Section completed Caridad Peralta NP, S [address] [place] [address], [address], [facility] 11/27/2018 13:07:08 ligation of bilateral fallopian tubes completed Caridad Peralta NP, S [address] [place] [address], [address], [facility] 11/27/2018 13:07:35 colonoscopy completed Caridad Almanza i, NP, S [address] [place] [address], [address], [facility] 11/27/2018 13:07:48 Imaging Results None recorded. Procedure Notes None recorded. Medical Equipment None Reported. Allergies Allergen ID Allergen Name Allergen Category Reaction Reaction Severity Criticality Documentation Date Start Date Code Code System Note Provider Name and Address Organization Details Recorded Time 1599 Bactrim medicatio n Not available Not available Not available 02/26/2018 41502 9 [facility] 8 11:36:01 7190 Contrave medicatio n Not available Not available Not available 05/11/2023 09250 69 RxNorm GIRMA KENDALL [address] [place], [address], [facility] 3 10:26:40 Medications Name Sig Start Date [...] Updated DateTime 5 159.39 cm 27.7 kg/m2 56161.9 g 67 /min 99 % 99 % 110 mm[Hg] 74 mm[Hg] [facility] 11:51:20 Social History Question Answer Notes LastModified by Organizat ion Details LastModified Time Tobacco Smoking Status Former Smoker Not Available [facility] 07/20/2020 03:36:23 What Was The Date Of Your Most Recent Tobacco Screening? 01/16/2025 [email or web address] Information not available 01/16/2025 Sex: Unknown Functional Status None recorded. Mental Status None recorded. Family History Relationship Description Onset Age of this Age Resolved Age Notes LastModified by Organization Details LastModified Time Father Coronary arterioscler osis [email or web address] Not available 2018 13:06:46 Mother Malignant neoplasm of lung [email or web address] Not available 15:18:26 Medical History No medical history recorded. Gynecological History Statement/Question Response Most Recent Mammogram 05/04/2017 Obstetrics History GPAL:G 0 P 0 0 0 0 Immunizations Vaccine Type Date Status Note Provider Nam e and Address Organization Details Recorded Time COVID-19, mRNA, LNP-S, PF, 30 mcg/0.3 mL dose 03/25/202 1 completed Soledad guaman, [facility] 04/29/2021 09:08:58 COVID-19, mRNA, LNP-S, PF, 30 mcg/0.3 mL dose 1 completed Soledad Samuels deniz, [facility] 04/29/2021 09:09:04 Tdap 8 completed Not Available [facility] 10/18/2019 02:14:52 influenza, unspecified formulation 1 completed Carli Ignacio deniz, [facility] 09/27/2022 08:40:41 zoster recombinant 1 completed GIRMA KENDALL [address] [place] [address], [address], [facility] 04/02/2023 16:06:14 zoster recombinant 0 completed GIRMA KENDALL [address] [place] [address], [address], [facility] 04/02/2023 16:06:36 Past Encounters Encounter ID Performer Location Encounter Start Date Encounter Closed Date Diagnosis/Indication Diagnosis SNOMED-CT Code Diagnosis ICD10 Code Diagnosis Note [id number] Tevin Munguia [facility] [address] [facility],[place] [address] 01/16/2025 11:40:31 01/16/2025 12:13:52 Active or passive immunization 267328598 Z23 advisedsub mitted General ex amination of patient 308547538 Z00.00 BP 110/74 L arm sitting today which is excellent lab-work is excellent Onychomyco sis of toenails 741657074 B35.1 will set up with anti fungal Sj? ? ?gren's syndrome 35391312 M35.09 needs levels rechecked Essential hypertension 39124730 I10 BP is excellent no side effects Health Concerns Section Related Observation LastModified by Organization Detai ls LastModified Time None Recorded Concern Status LastModified by Organization Details LastModified Time None Recorded Payers Encounter Date Sequence Insurance Name Policy Number Policy Daniel Covered Member ID Daniel Member ID Guarantor Name 01/16/2025 1 [place] [id number] Antoinette Cade Birdie [id number] Antoinette Packer Notes Date Note Type Note Provider Name a nd Address Organization Details Recorded Time 5 text/html Annual WellnessReported bypatient.Diet and Nutrition:healthy [...] of hearing Vision:no vision problems GIRMA KENDALL [address] [place] [address], [address], [facility] 01/16/2025 12:13:51 OBGyn Episode No OBEpisode recorded.
--- OUTSIDE RECORDS SUMMARY | 2025-01-16 12:55 | XMS_ITS | Encounter Summary ---
Author Organization [facility] Address [address] [place] [address] Care Team Providers Care Concrete Pile Driver Operator Name Role Phone Tevin Munguia DO Primary Care Provider Michelle Talbot MD Unavailable Michelle Talbot MD Unavailable Reason for Visit * Reason Comments Referral Encounter Details Date Type Department Care Team ([facility] st Contact Info) Description 08/06/2023 Telephone [facility] Rheumatology [place] [address] [place], [place] [phone] Michelle Talbot MD [address] [address] Referral Social History Tobacco Use Types Packs/Day Years [...] on filedocumented in this encounter Care Teams Concrete Pile Driver Operator Relationship Specialty Start Date End Date Tevin Munguia DO [address] [place] [address] [place] [address] PCP - General 06/21/23 Michelle Talbot MD [address] [place] [id number] PCP - [place] [employer] Attributed 08/17/23 12/16/23 Michelle Talbot MD [address] [place] [id number] PCP - [place] [employer] Attributed 01/16/24 Brenda Javed [address] [place] [address] Physician [employer] Internal Medicine 04/27/23 documented as of this encounter
--- OUTSIDE RECORDS SUMMARY | 2025-01-16 12:55 | XMS_ITS | Encounter Summary ---
Author Organization [facility] Address [address] [place] [address] Care Team Providers Care Prop And Scenery Maker Name Role Phone Tevin Munguia DO Primary Care Provider [phone] Michelle Talbot MD Unavailable Michelle Talbot MD Unavailable Encounter Details Date Type Department Care Team (Late st Contact Info) Description 07/19/2023 Scanned Document [facility] RHEUMATOLOGY SCAN Rheumatology, Scan Social History Tobacco [...] on filedocumented in this encounter Care Teams Prop And Scenery Maker Relationship Specialty Start Date End Date Tevin Munguia DO [address] [facility] [place] [address] PCP - General 06/21/23 Michelle Talbot MD [address] [address] PCP - [place] [employer] Attributed 08/17/23 12/16/23 Michelle Talbot MD [address] [place] [id number] PCP - [place] [employer] Attributed 01/16/24 Brenda Javed [address] [place] [id number] Physician Instruction[employer] Media [employer] Technician Internal Medicine 04/27/23 documented as of this encounter
--- OUTSIDE RECORDS SUMMARY | 2025-01-16 12:55 | XMS_ITS | Clinical Summary ---
Author Organization [facility] Address [address] [place] [address] Care Team Providers Care Roller Setter Name Role Phone Tevin Munguia DO Primary Care Provider [phone] Allergies Active Allergy Reactions Criticality Noted Date Comments Sulfamethoxazole-Tri methoprim Other (See Comments) Low 02/24/2018 Peripheral Neuritis Medications Medication Sig Dispensed Refills Start Date End Date Status LISINOPRIL PO Take by mouth. 0 Active BuPROPion HCl (WELLBUTRIN PO) Take by mouth. 0 Activ e cephalexin (KEFLEX) 500 MG capsule Take 1 capsule (500 mg total) by mouth 4 (four) times a day. 28 capsule 0 02/24/2018 Active oxyCODONE (ROXICODONE) 5 MG immediate release tablet Take 1 tablet (5 mg total) by mouth every 4 (four) hours as needed for pain (Take one or 2 tablets as needed for extreme pain). 10 tablet 0 02/24/2018 Active Calcium-Vitamin D-Vitamin K 500-1000-40 MG-UNT-MCG CHEW Orally 0 Active Estradiol 10 MCG TABS 0 08/23/2019 Active LORazepam (ATIVAN) 1 MG tablet Take 1 tablet by mouth. 0 Active nitrofurantoin (MACRODANTIN) 100 MG capsule Take 100 mg by mouth. 0 Active meloxicam (MOBIC) 15 MG tablet Take 1 tablet (15 mg total) by mouth daily. 30 tablet 0 10/03/2019 Active naproxen (NAPROSYN) 500 MG tablet naproxen 500 mg tablet 0 Active Active Problems No known active problems Immunizations Name Administration Dates Next Due Covid-19 (Pfizer) Dilution Required 08/29/2021,0 01/06/2021,12/09/2020 Covid-19 (Pfizer) Ready To Use 03/10/2022 Family History Medical History Relation Name Comments Cancer Mother Hypertension Sister Relation Name Status Comments Mother Sister Social History Tobacco Use Types Packs/Day Years Used Date Smoking Tobacco: Never Smokeless Tobacco: Never Tobacco Cessation:Counseling Given: Not Answered Alcohol Use Standard Drinks/Week Comments Yes 0 (1 standard drink = 0.6 oz pur e alcohol) social Sex and Gender Information Value Date Recorded Sex Assigned at Female 05/05/2021 10:38 AM EDT Gender Identity Not on file Sexual Orientation Not on file Job Start Date Occupation Industry Not on file Not on file Not on file Last Filed Vital Signs Vital Sign Reading Time Taken Comments Blood Pressure 102/63 02/24/2018 4:02 AM EDT Pulse 80 02/24/2018 5:53 AM EDT Temperature 36.5 ??C (97.7 ??F) 02/24/2018 4:02 AM ED T Respiratory Rate 20 02/24/2018 5:53 AM EDT Oxygen Saturation 98% 02/24/2018 5:53 AM EDT Inhaled Oxygen Concentration - - Weight 72.6 kg (160 lb) 10/13/2022 1:57 PM EST Height 161.3 cm (5' 3.5 ) 10/13/2022 1:57 PM EST Body Mass Index 27.9 10/13/2022 1:57 PM EST Plan of Treatment Health Maintenance Due Date Last Done Comments Hepatitis C Screening 1959 Depression Screening 1971 BMI Counseling 1977 Preventative Health Evaluation 1977 Cervical Cancer Screening (Pap Smear) 1980 Colon Cancer Screening (Colonoscopy) 2004 Breast Cancer Screening (Mammogram) 2009 Fall Risk Assessment 2024 Osteoporosis Screening (DEXA Scan) 2024 05/06/2021 Pneumococcal Vaccine (1 of 1 - PCV) 2024 COVID-19 Vaccine ( - season) 2024 03/10/2022, 08/29/2021, 01/06/2021, Additional history exists Influenza Vaccine (#1) 2024 2, 07/13/2021, 07/13/2020, Additional history exists DTap / Tdap / Td (2 - Td or Tdap) 06/16/2028 06/16/2018 RSV Adult > 60+ Yrs or (1 - 1-dose 75+ series) 2034 Shingrix-Zoster Vaccine Completed 07/29/2021, 05/06 Hepatitis B Vaccines Aged Out No long er eligible based on patient's age to complete this topic Pneumococcal Vaccine Aged Out No long er eligible based on patient's age to complete this topic RSV Ped < 20 months Aged Out No longe r eligible based on patient's age to complete this topic Care Teams Roller Setter Relationship Specialty Start Date End Date Tevin Munguia DO [address] [place] [address] PCP - General Internal Medicine 02/24/18
--- OUTSIDE RECORDS SUMMARY | 2025-01-16 12:56 | XMS_ITS | Clinical Summary ---
Author Organization [facility] Address [address] [place] [address] Care Team Providers Care Hold Worker Name Role Phone Tevin Munguia DO Primary Care Provider [phone] Surgical History Surgery Date Site/Laterality Comments SECTION PROCEDURE: SECTION;COMMENT:x2 Medical History Medical History Date Comments High blood pressure DX:High bloo d pressure Family History Medical History Relation Name Comments Cancer Mother Hypertension Sister Relation Name Status Comments Mother Sister Social History Tobacco Use Types Packs/Day Years Used Date Smoking Tobacco: Never Smokeless Tobacco: Never Alcohol Use Standard Drinks/Week Comments Yes 0 (1 standard drink = 0.6 oz pur e alcohol) Comments Unknown Sex and Gender Information Value Date Recorded Sex Assigned at Not on file Legal Sex Female 3:22 AM EST Gender Identity Not on file Sexual Orientation Not on file Obstetrics History Last Filed Vital Signs Vital Sign Reading Time Taken Comments Blood Pressure - - Pulse - - Temperature - - Respiratory Rate - - Oxygen Saturation - - Inhaled Oxygen Concentration - - Weight 72.6 kg (160 lb) 10/13/2022 1:57 PM EST Height 161.3 cm (5' 3.5 ) 10/13/2022 1:57 PM EST Body Mass Index 27.9 10/13/2022 1:57 PM EST Plan of Treatment Health Maintenance Due Date Last Done Comments Breast Cancer Screening 1959 DTaP,Tdap,and Td Vaccines (1 - Tdap) 1978 Cervical Cancer Screening: Pap Smear 1980 Pneumococcal Vaccine: 50+ Years (1 of 1 - PCV) 2009 Zoster Vaccines (1 of 2) 2009 Colorectal Cancer Screening: Colonoscopy 08/20/2022 Depression Screening 08/20/2022 Hepatitis C Screening 08/20/2022 Social Influencers of Health Screening 08/20/2022 Falls Risk Assessment 2024 COVID-19 Vaccine ( season) 2024 03/10/2022, 08/29/2021, 01/06/2021, Additional history exists Influenza Vaccine (Season Ended) 2025 Osteoporosis Screening (Bone Density Screening) 05/06/2031 05/06/2021, 05/06/2021 RSV Immunization Adult Patients (1 - 1-dose 75+ series) 2034 HIB Vaccines Aged Out No longer eligi ble based on patient's age to complete this topic HPV Vaccines Aged Out No longer eligi ble based on patient's age to complete this topic Hepatitis A Vaccines Aged Out No long er eligible based on patient's age to complete this topic Hepatitis B Vaccines Aged Out No long er eligible based on patient's age to complete this topic IPV Vaccines Aged Out No longer eligi ble based on patient's age to complete this topic MMR Vaccines Aged Out No longer eligi ble based on patient's age to complete this topic Meningococcal ACWY Vaccine Aged Out N o longer eligible based on patient's age to complete this topic Meningococcal B Vaccine Aged Out No l onger eligible based on patient's age to complete this topic Pneumococcal Vaccine: Pediatrics (0 to 5 Years) and At-Risk Patients (6 to 64 Years) Aged Out No longer eligible based on patient's age to complete this topic RSV Immunization Patients Under 20 months Aged Out No longer eligible based on patient's age to complete this topic Varicella Vaccines Aged Out No longer eligible based on patient's age to complete this topic Procedures Procedure Name Priority Date/Time Associated Diagnosis Comments BONE DENSITY STUDY Routine 05/06/2021 3: 16 PM EDT Encounter for screening for osteoporosis from Last 3 Months or Most Recently Relevant to Health Maintenance Results * BONE DENSITY STUDY (05/06/2021 3:16 PM EDT) Anatomical Region Laterality Modality Bone Densitometr y 04/29/2021 9:27 AM EDT Narrative 05/06/2021 4:38 PM EDT EXAM PERFORMED: Bone density study DEXA EXAM HISTORY: Postmenopausal screening TECHNIQUE: [employer] system utilized for DEXA images Comparison: none Findings: LUMBAR SPINE: ?? Bone mineral density (BMD) measured from L1-L4 is 1.350 ( g/cm2) . This correlates with a Z-score of 2.4 ?? and a T-score of 1.3 ?? Left HIP: Bone mineral density (BMD) Total L HIP measured is 0.995 ( g/cm2). This correlates with a Z-score of 0.8 ?? and a T-score of -0.1 Left femur neck BMD 1.010 ( g/cm2) Z-Score 1.0 ?? T-Score -0.2 IMPRESSION: 1. ??Lumbar spine: ??Normal. 2. ??Hip: ??Normal. FRAX 10 year fracture risk: Major osteoporotic fracture ??5.5 (%)% Hip fracture 0.1 (%)% PLEASE NOTE: ?? 1) ??The World Health Organization defines low BMD as follows: ?T-score ? Normal ? >/= ??- 1 Osteopenia ? < -1 and ??> - 2.5 Osteoporosis ? =/< -2.5 without fractures Established osteoporosis ? < -2.5 with fractures 2) ??In general, you may wish to consider: ? Diagnosis ?Treatment ?Follow-up DEXA ?Normal BMD ?Prevention ?2-3 years ?Osteopenia ?Prevention/therapy ?1-2 years ?Osteoporosis ?Therapy ? Yearly 3) ??Fracture risk estimated from the T-score is more accurate for vertebral fractures (often spontaneous) than for hip fractures. ?? 4) ??The next DEXA scan of this patient should include the following sites: Lumbar spine, hip. Session: Separate Thank you or the courtesy of this referral Report reviewed and signed by : Dr. Gary Zambrano MD on 05/06/2021 4:38 PM. Workstation Name - [id number] Procedure Note Gary Zambrano MD - 09/08/2022 EXAM PERFORMED: Bone density study DEXA EXAM HISTORY: Postmenopausal screening TECHNIQUE: [employer] system utilized for DEXA images Comparison: none Findings: LUMBAR SPINE: Bone mineral density (BMD) measured from L1-L4 is 1.350 ( g/cm2) . This correlates with a Z-score of 2.4 and a T-score of 1.3 Left HIP: Bone mineral density (BMD) Total L HIP measured is 0.995 ( g/cm2). This correlates with a Z-score of 0.8 and a T-score of -0.1 Left femur neck BMD 1.010 ( g/cm2) Z-Score 1.0 T-Score -0.2 IMPRESSION: 1. Lumbar spine: Normal. 2. Hip: Normal. FRAX 10 year fracture risk: Major osteoporotic fracture 5.5 (%)% Hip fracture 0.1 (%)% PLEASE NOTE: 1) The World Health Organization defines low BMD as follows: T-score Normal >/= -1 Osteopenia < -1 and > -2.5 Osteoporosis =/< -2.5 without fractures Established osteoporosis < -2.5 with fractures 2) In general, you may wish to consider: Diagnosis Treatment Follow-upDEXA Normal BMD Prevention 2-3years Osteopenia Prevention/therapy 1-2years Osteoporosis Therapy Yearly 3) Fracture risk estimated from the T-score is more accurate forvertebral fractures (often spontaneous) than for hip fractures. 4) The next DEXA scan of this patient should include the following sites:Lumbar spine, hip. Session: Separate Thank you or the courtesy of this referral Report reviewed and signed by : Dr. Gary Zambrano MD on 05/06/2021 4:38PM. Workstation Name - [id number] us Radiology Results Historical IMMitul DXA PROCEDUR ES Final Result from Last 3 Months or Most Recently Relevant to Health Maintenance Care Teams Hold Worker Relationship Specialty Start Date End Date Tevin Munguia DO [address] [facility] [address] [place], [place] PCP - General Internal Medicine 02/24/18
[2025-01-16 17:48] LABS: MANUAL DIFF FLAG NO
[2025-01-16 17:55] LABS: Basophils Absolute Auto 0.1 X10*3/uL (0.0-0.2); Basophils Percent Auto 1.1 % (0-2); Eosinophils Absolute Auto 0.1 X10*3/uL (0.0-0.4); Eosinophils Percent Auto 2.8 % (0-4); Hematocrit 40.3 % (37.0-47.0); Hemoglobin 13.2 g/dl (12.0-16.0); Imm Gran Abs Auto 0.01 X10*3/uL (0.00-0.03); Imm Gran Pct Auto 0.2 % (0.0-0.4); Lymphocytes Absolute Auto 1.7 X10*3/uL (1.2-4.9); Lymphocytes Percent Auto 35.9 % (20-40); Mean Corpuscular HGB Conc 32.8 g/dl (31.0-35.0); Mean Corpuscular Hemoglobin 28.2 pg (27.0-33.0); Mean Corpuscular Volume 86.1 fL (80.0-98.0); Monocytes Absolute Auto 0.6 X10*3/uL (0.1-1.2); Monocytes Percent Auto 12.5 % (2-11); Neutrophils Absolute Auto 2.2 x10*3/uL (2.0-8.3); Neutrophils Percent Auto 47.5 % (45-73); Platelet Count 229 X10*3/uL (160-400); Red Blood Count 4.68 X10*6/uL (4.20-5.50); Red Cell Distribution Width 13.7 % (11.0-16.0); White Blood Count 4.7 X10*3/uL (4.8-10.8)
[2025-01-16 18:15] LABS: Alanine Aminotransferase 20 U/L (0-31); Albumin Level 4.3 g/dL (3.5-5.0); Alkaline Phosphatase 57 U/L (39-117); Anion Gap 15 (12-20); Aspartate Amino Transferase 27 U/L (5-31); Bilirubin Total 0.4 mg/dL (0.0-1.0); Blood Urea Nitrogen 24 mg/dL (9-16); C Reactive Protein 0.21 mg/dL (< or = 0.50); Carbon Dioxide 25 mmol/L (22-29); Chloride 105 mmol/L (96-108); Cholesterol 240 mg/dL (<200); Estimated Glomerular Filt Rate > 60; Glucose Random 87 mg/dL (60-115); HDL Cholesterol 72 mg/dL (>40); LDL Cholesterol Calculated 155 mg/dL (<100); Potassium 4.2 mmol/L (3.3-5.1); Sodium 141 mmol/L (135-145); Total Protein 7.9 g/dL (6.5-8.0); Triglycerides 68 mg/dL (<150)
[2025-01-16 18:41] LABS: Erythrocyte Sedimentation Rate 28 MM/HR (0-20)
[2025-01-19 22:03] LABS: Antibody to SS-A Antigen >8.0 POS AI (<1.0 NEG); Antibody to SS-B Antigen <1.0 NEG AI (<1.0 NEG)
== END 2025-01-16 12:18 | disposition home or self-care (01) ==
LOC: HO.MANLDS 12:17
PROVIDERS: Visit Provider Physician Assistant
DX: Z00.00 Encounter for general adult medical examination without abnormal findings (principal); Z13.6 Encounter for screening for cardiovascular disorders; M35.09 Sjogren syndrome with other organ involvement
CPT/HCPCS: 36415; 80053; 80061; 85025; 85652; 86140; 86235